=== PATIENT | male | born 1970 | race Two or more races ===

== ENCOUNTER 2024-06-27 19:20 | Emergency (ER) | payer MEDICAID, SELFPAY ==
[2024-06-27 19:26] VITALS: BP 125/78; PULSE 93; RESP 18; TEMP 37.1; O2SAT 96; BMI 25.6
--- NOTE | 2024-06-27 19:50 | PD.EDRME ---
Rapid [facility] Screening Exam [facility] Arrival date/time: 06/27/24 19:20 53M with no significant PMH presents to ED with 1 week of gradual R eye vision loss. No other symptoms. Patient has pending outpatient eye doctor appt in [place]. Chief Complaint: Eye Problems Vital signs: Vital Signs Temperature 98.7 F 06/27/24 19:26 Pulse Rate 93 06/27/24 19:26 Respiratory Rate 18 06/27/24 19:26 Blood Pressure 125/78 06/27/24 19:26 Pulse Oximetry (%) 96 06/27/24 19:26 Oxygen Delivery Method Room Air 06/27/24 19:26
== END 2024-06-27 19:50 | disposition left against medical advice (07) ==
PROVIDERS: Emergency Provider Emergency Medicine
DX: H54.61 Unqualified visual loss, right eye, normal vision left eye (principal); Z53.29 Procedure and treatment not carried out because of patient's decision for other reasons
CPT/HCPCS: 99281